=== PATIENT | female | born 1980 | race Caucasian/White ===

== ENCOUNTER 2016-09-28 16:42 | Emergency (ER) | payer OTHER ==
[~2016-09-28] VITALS: Ht 163.8 cm; Wt 71.0 kg
[2016-09-28 16:45] VITALS: Ht 163.8 cm; Wt 71.0 kg
[2016-09-28] MEDS ORDERED: ASPI-391 PO (17:05)
[2016-09-28] MEDS ORDERED: SODIUM CHLORIDE 0.9% 1000ML 1,000 ML IV STA (17:18)
--- NOTE | 2016-09-28 17:21 | EMERGENCY ROOM VISIT NOTE ---
History Report prepared by Axel: Yenifer Casillas Under the Supervision of: Dr. Silva Grayson D.O. First contact with patient: 17:05 Chief Complaint: ILLNESS Stated Complaint: STIFF NECK, BRAIN SWELLING, DIZZY, RASH, FEVER History of Present Illness The patient is a 36 year old female who presents to the Emergency Room with complaints of a persistent illness for the past nine days. She currently rates her discomfort as a 2/10 in severity. The patient states that she first found a rash on her right leg, and thought that she was bit by a spider. She states that her rash had began to subside, but denies any swelling. The patient states that the area was itchy. She states that she then did research online and felt that her symptoms were similar to meningitis. The patient states that she has had a stiff neck and has had subjective fevers at home. The patient's states that the patient has been experiencing hot and cold flashes. She notes that one day she has had a sore throat and additionally states that she had a cough one day. The patient states that she has noticed head pressure. She states that she has been feeling confused, foggy, and has had brain fatigue. The patient states that her head pressure is worst in the morning. The patient notes generalized body aches and pains. She states that her symptoms all began the day after September 19, noting that she was around many people on that day. The patient notes a right sided stuffy nose. She denies any mouth ulcer, shortness of breath, or trouble swallowing. The patient reports diarrhea for one day. She denies any vomiting or nausea. The patient denies taking any prescribed medication or recent prolonged travel. Source of History: patient, spouse/significant other () Onset: nine days Position: other (global) Symptom Intensity: 2/10 Quality: other (illness) Timing: other (persistent) Associated Symptoms: + fevers, + headache, + sorethroat, + cough, + neck pain (stiffness), + diarrhea, + fatigue, + rash, No SOB, No nausea, No vomiting Note: Associated Symptoms: brain fatigue, fogginess, confused, hot and cold flashes Review of Systems See HPI for pertinent positives & negatives. A total of 10 systems reviewed and were otherwise negative. Past Medical & Surgical Medical Problems: (1) Bronchitis (2) Cellulitis Family History Heart disease Hypertension Kidney disease Kidney stones Social History Smoking Status: Current Every Day Smoker Alcohol Use: none Drug Use: none Marital Status: Housing Status: lives with significant other Occupation Status: employed Current/Historical Medications Scheduled Doxycycline Monohydrate (Monodox), 100 MG PO BID Scheduled PRN [id number]-[id number]-Pveispgx (Excedrin Extra Strength), 2 TABS PO UD PRN for Headache or Pain Allergies Coded Allergies: Rommle (Verified Allergy, Intermediate, FACIAL EDEMA, 01/09/12) Silver Nitrate (Verified Allergy, Unknown, 10/02/10) Uncoded Allergies: NICKELSULFATE (Allergy, Unknown, 04/23/09) Physical Exam Vital Signs Date Time Temp Pulse Resp B/P (MAP) Pulse Ox O2 Delivery O2 Flow Rate FiO2 09/28/16 20:03 36.7 76 18 113/66 96 09/28/16 19:30 76 18 113/66 96 Room Air 09/28/16 16:45 36.7 92 20 116/71 97 Room Air Physical Exam GENERAL: alert, well appearing, well nourished, no distress, non-toxic EYE EXAM: normal conjunctiva, PERRL and EOM's grossly intact OROPHARYNX: no exudate, no erythema, lips, buccal mucosa, and tongue normal and mucous membranes are moist NECK: supple, no nuchal rigidity, no adenopathy, non-tender LUNGS: Clear to auscultation. Normal chest wall mechanics HEART: no murmurs, S1 normal and S2 normal ABDOMEN: abdomen soft, non-tender, normo-active bowel sounds, no masses, no rebound or guarding. BACK: Back is symmetrical on inspection and there is no deformity, no midline tenderness, no CVA tenderness. SKIN: To the posterior aspect just superior to popliteal fold, mild erythema, no evidence of an insect bite, no papules, no tenderness, no vesicles and no bruising UPPER EXTREMITIES: upper extremities are grossly normal. LOWER EXTREMITIES: No pitting edema. NEURO EXAM: Normal sensorium, cranial nerves II-XII grossly intact, normal speech, no gross weakness of arms, no gross weakness of legs. Medical Decision & Procedures ER Provider Diagnostic Interpretation: Radiology results have been interpreted by the radiologist and reviewed by me. CT SCAN OF THE BRAIN WITHOUT IV CONTRAST CLINICAL HISTORY: Headache. COMPARISON STUDY: No priors. TECHNIQUE: Unenhanced axial CT scan of the brain is performed from the vertex to the skull base. Automated dose control exposure was utilized. CT DOSE: 537.48 mGy.cm FINDINGS: Brain parenchyma: The brain parenchyma is normal in appearance. There is no hemorrhage, mass effect, or evidence of acute territorial ischemia by CT criteria. Murry-white matter is preserved. No extra-axial fluid collection is seen. Ventricles, sulci, cisterns: Normal in configuration. Intracranial vasculature: The visualized intracranial vasculature at the skull base is normal in appearance. Calvarium: Unremarkable. Sinuses and mastoids: The visualized paranasal sinuses are clear. The mastoid air cells are well pneumatized. Orbits: The bony orbits are grossly intact. IMPRESSION: No acute intracranial abnormality. Electronically signed by: Avtar Dunn M.D. 09/28/2016 7:00 PM Dictated Date/Time: 09/28/2016 6:59 PM SINGLE VIEW CHEST CLINICAL HISTORY: Cough and fever. FINDINGS: An AP, portable, upright chest radiograph is obtained. No prior studies are available for comparison at the time of dictation. The examination is degraded by portable technique and patient rotation. The cardiomediastinal silhouette is unremarkable. The lungs and pleural spaces are clear. No pneumothorax is seen. The bony thorax is grossly intact. IMPRESSION: No active disease in the chest. Electronically signed by: Avtar Dunn M.D. 09/28/2016 5:52 PM Dictated Date/Time: 09/28/2016 5:52 PM Laboratory Results 09/28/16 17:40 Red Blood Count 4.39, Mean Corpuscular Volume 89.7, Mean Corpuscular Hemoglobin 30.1, Mean Corpuscular Hemoglobin Concent 33.5, Mean Platelet Volume 9.4, Neutrophils (%) (Auto) 79.0, Lymphocytes (%) (Auto) 10.5, Monocytes (%) (Auto) 5.7, Eosinophils (%) (Auto) 4.2, Basophils (%) (Auto) 0.2, Neutrophils # (Auto) 7.97, Lymphocytes # (Auto) 1.06, Monocytes # (Auto) 0.58, Eosinophils # (Auto) 0.42, Basophils # (Auto) 0.02 09/28/16 17:40 Test 09/28/16 17:30 09/28/16 17:40 09/28/16 18:02 Urine Color DK YELLOW Urine Appearance CLOUDY (CLEAR) Urine pH 5.5 (4.5-7.5) Urine Specific [place] 1.034 (1.000-1.030) Urine Protein TRACE (NEG) Urine Glucose (UA) NEG (NEG) Urine Ketones TRACE (NEG) Urine Occult Blood NEG (NEG) Urine Nitrite NEG (NEG) Urine Bilirubin NEG (NEG) Urine Urobilinogen NEG (NEG) Urine Leukocyte Esterase TRACE (NEG) Urine WBC (Auto) 5-10 /hpf (0-5) Urine RBC (Auto) 0-4 /hpf (0-4) Urine Hyaline Casts (Auto) 0 /lpf (0-5) Urine Epithelial Cells (Auto) >30 /lpf (0-5) Urine Bacteria (Auto) 1+ (NEG) Urine Crystals (NONE PRSENT) Urine Mucus PRESENT (NONE PRSENT) Urine Yeast (Auto) (NONE PRSENT) White Blood Count 10.09 K/uL (4.8-10.8) Red Blood Count 4.39 M/uL (4.2-5.4) Hemoglobin 13.2 g/dL (12.0-16.0) Hematocrit 39.4 % (37-47) Mean Corpuscular Volume 89.7 fL (80-100) Mean Corpuscular Hemoglobin 30.1 pg (25-34) Mean Corpuscular Hemoglobin Concent 33.5 g/dl (32-36) Platelet Count 366 K/uL (130-400) Mean Platelet Volume 9.4 fL (7.4-10.4) Neutrophils (%) (Auto) 79.0 % Lymphocytes (%) (Auto) 10.5 % Monocytes (%) (Auto) 5.7 % Eosinophils (%) (Auto) 4.2 % Basophils (%) (Auto) 0.2 % Neutrophils # (Auto) 7.97 K/uL (1.4-6.5) Lymphocytes # (Auto) 1.06 K/uL (1.2-3.4) Monocytes # (Auto) 0.58 K/uL (0.11-0.59) Eosinophils # (Auto) 0.42 K/uL (0-0.5) Basophils # (Auto) 0.02 K/uL (0-0.2) RDW Standard Deviation 41.4 fL (36.4-46.3) RDW Coefficient of Variation 12.6 % (11.5-14.5) Immature Granulocyte % (Auto) 0.4 % Immature Granulocyte # (Auto) 0.04 K/uL (0.00-0.02) Anion Gap 6.0 mmol/L (3-11) Est Creatinine Clear Calc Drug Dose 131.3 ml/min Estimated GFR () 138.6 Estimated GFR (Non- 119.6 BUN/Creatinine Ratio 9.2 (10-20) Calcium Level 8.4 mg/dl (8.5-10.1) Total Bilirubin 0.4 mg/dl (0.2-1) Aspartate Amino Transf (AST/SGOT) 58 U/L (15-37) Alanine Aminotransferase (ALT/SGPT) 104 U/L (12-78) Alkaline Phosphatase 247 U/L (45-117) Total Protein 6.5 gm/dl (6.4-8.2) Albumin 2.8 gm/dl (3.4-5.0) Globulin 3.7 gm/dl (2.5-4.0) Albumin/Globulin Ratio 0.8 (0.9-2) Human Chorionic Gonadotropin, Qual NEG (NEG) Lyme Disease IgG Antibody POS (NEG) Monoscreen POS (NEG) Bedside Lactic Acid Venous 1.00 mmol/L (0.90-1.70) Laboratory results per my review. Medications Administered Medications (Trade) Dose Ordered Sig/Fern Route Start Time Stop Time Status Last Admin Dose Admin Doxycycline Hyclate (Vibramycin Cap) 100 mg ONE ONCE PO 09/28/16 20:00 09/28/16 20:01 DC 09/28/16 20:01 100 MG ECG Indication: other (illness) Rate (beats per minute): 78 Rhythm: sinus rhythm Findings: no acute ischemic change, other (normal intervals) ED Course 1706: The patient was evaluated in room B7. A complete history and physical exam was performed. 1812: Per nursing staff the patient eloped from the department. 1822: Per nursing staff, the patient arrived back in her room. 1942: I reevaluated the patient and she is resting comfortably. I discussed all the exam findings with her and I discussed the treatment plan. She verbalized complete understanding and agreement. She will be ready to go home shortly. 1999: Ordered Vibramycin Cap 100 mg PO. Medical Decision Differential diagnosis: Etiologies such as viral syndrome, otitis, pharyngitis, pneumonia, influenza, meningitis, urinary tract infection, sepsis, bacteremia, as well as others were entertained. Medication Reconciliation: I attest that I have personally reviewed the patient' s current medication list. Blood pressure screening: Patient was found to have normal blood pressure on screening and does not require follow-up. Patient with multiple and varied complaints on bedside interview. Patient found to have no significant leukocytosis, however was positive for mononucleosis as well as Lyme's. Patient denied any prior knowledge of infection with either of these 2 illnesses. Patient started on antibiotics. Discussed treatment of mononucleosis and potential complications including spinal megaly. Advised limited activity and no contact sports. Discussed close follow-up with family doctor, symptoms to watch and return for, she verbalized understanding was agreeable with plan. Patient's vital signs are stable, doubt meningitis/encephalitis, no evidence of occult pneumonia, doubt cardiac pathology, GI pathology. Clean catch UA suboptimal, no other symptoms to suggest UTI/pyelonephritis. Patient's LFTs mildly elevated, most likely related to viral illness. Advised patient family doctor should recheck LFTs in 1-2 weeks. Impression Primary Impression: Lyme disease Additional Impressions: Mononucleosis Myalgia Abnormal LFTs Scribe Attestation The scribe's documentation has been prepared under my direction and personally reviewed by me in its entirety. I confirm that the note above accurately reflects all work, treatment, procedures, and medical decision making performed by me. Departure Information Dispostion Home / Self-Care Prescriptions Doxycycline Monohydrate (Monodox) 100 Mg Cap 100 MG PO BID for 21 Days, #42 CAP Prov: Silva Grayson, 09/28/16 Referrals No Doctor, Assigned (PCP) Forms HOME CARE DOCUMENTATION FORM, IMPORTANT VISIT INFORMATION, WORK / SCHOOL INSTRUCTIONS Patient Instructions [facility] Additional Instructions Please follow up with your family doctor. You need to have your liver numbers rechecked in 1-2 weeks to assure that they are coming back down in a normal range. There are likely elevated because of your mononucleosis. Please avoid any close contacts, sharing drinks or eating utensils with others as mononucleosis can be passed in this manner. Please take the antibiotic as prescribed until you complete the course. Please drink plenty of water. If you develop any worsening pain, vomiting, fevers, trouble breathing, or you have any other new concerns, please return to emergency room. Problem Qualifiers
--- NOTE | 2016-09-28 17:54 | DIAGNOSTIC IMAGING REPORT ---
SINGLE VIEW CHEST CLINICAL HISTORY: Cough and fever. FINDINGS: An AP, portable, upright chest radiograph is obtained. No prior studies are available for comparison at the time of dictation. The examination is degraded by portable technique and patient rotation. The cardiomediastinal silhouette is unremarkable. The lungs and pleural spaces are clear. No pneumothorax is seen. The bony thorax is grossly intact. IMPRESSION: No active disease in the chest. Electronically signed by: Avtar Dunn M.D. 09/28/2016 5:52 PM Dictated Date/Time: 09/28/2016 5:52 PM
[2016-09-28 18:11] LABS: BASO % 0.2 %; BASO ABS # 0.02 K/uL (0-0.2); COMPLETE YES; EOS % 4.2 %; HEMATOCRIT 39.4 % (37-47); IG% 0.4 %; LYMPH % 10.5 %; LYMPH ABS # 1.06 K/uL (1.2-3.4); MEAN CELL VOLUME 89.7 fL (80-100); MEAN CORPUSCULAR HEMOGLOBIN 30.1 pg (25-34); MEAN CORPUSCULAR HGB CONC 33.5 g/dl (32-36); MEAN PLATELET VOLUME 9.4 fL (7.4-10.4); MONO % 5.7 %; PLATELET COUNT 366 K/uL (130-400); RED BLOOD COUNT 4.39 M/uL (4.2-5.4); WHITE BLOOD COUNT 10.09 K/uL (4.8-10.8)
[2016-09-28 18:38] LABS: BUN/CREATININE RATIO 9.2 (10-20); CALCIUM 8.4 mg/dl (8.5-10.1); CREATININE 0.59 mg/dl (0.60-1.20); POTASSIUM 3.6 mmol/L (3.5-5.1)
[2016-09-28 18:41] LABS: ALB/GLOB RATIO 0.8 (0.9-2)
[2016-09-28 18:43] LABS: URINE APPEARANCE CLOUDY (CLEAR); URINE COLOR DK YELLOW; URINE EPITHELIAL CELL AUTO >30 /lpf (0-5); URINE NITRITE NEG (NEG); URINE PH 5.5 (4.5-7.5); URINE SPECIFIC GRAVITY 1.034 (1.000-1.030); UROBILINOGEN NEG (NEG)
[2016-09-28 18:57] LABS: MANUAL MICROSCOPIC REQUIRED? NO; REVIEW REQ? YES; URINE BILIRUBIN NEG (NEG)
[2016-09-28 18:58] LABS: URINE MUCUS PRESENT (NONE PRSENT)
[2016-09-28 19:00] LABS: ZZUR CULT IF INDIC CLEAN CATCH YES
--- NOTE | 2016-09-28 19:02 | DIAGNOSTIC IMAGING REPORT ---
CT SCAN OF THE BRAIN WITHOUT IV CONTRAST CLINICAL HISTORY: Headache. COMPARISON STUDY: No priors. TECHNIQUE: Unenhanced axial CT scan of the brain is performed from the vertex to the skull base. Automated dose control exposure was utilized. CT DOSE: 537.48 mGy.cm FINDINGS: Brain parenchyma: The brain parenchyma is normal in appearance. There is no hemorrhage, mass effect, or evidence of acute territorial ischemia by CT criteria. Murry-white matter is preserved. No extra-axial fluid collection is seen. Ventricles, sulci, cisterns: Normal in configuration. Intracranial vasculature: The visualized intracranial vasculature at the skull base is normal in appearance. Calvarium: Unremarkable. Sinuses and mastoids: The visualized paranasal sinuses are clear. The mastoid air cells are well pneumatized. Orbits: The bony orbits are grossly intact. IMPRESSION: No acute intracranial abnormality. Electronically signed by: Avtar Dunn M.D. 09/28/2016 7:00 PM Dictated Date/Time: 09/28/2016 6:59 PM
[2016-09-28 19:22] LABS: PREG INTERNAL NEGATIVE QC NEG CLEAR BACKGROUND; PREG INTERNAL POSITIVE QC POS CONTROL LINE
[2016-09-28 19:28] LABS: LYME DISEASE AB IGG POS (NEG); LYME DISEASE AB IGM POS (NEG)
[2016-09-28] MEDS ORDERED: DOXY100C76 PO (19:53)
[2016-09-28] MEDS ORDERED: DOXYCYCLINE HYCLATE 100 MG CAP PO ONE (20:00)
[2016-09-28 20:03] VITALS: BP 113/66; PULSE 76; TEMP 36.7; O2SAT 96
== END 2016-09-28 20:04 | disposition home or self-care (01) ==
LOC: C.EDB 16:44
DX: A69.20 Lyme disease, unspecified (principal); B27.90 Infectious mononucleosis, unspecified without complication; M79.1 Myalgia; R74.8 Abnormal levels of other serum enzymes; F17.200 Nicotine dependence, unspecified, uncomplicated; Z82.49 Family history of ischemic heart disease and other diseases of the circulatory system